=== PATIENT | female | born 2000 | race Caucasian/White ===

== ENCOUNTER → 2021-07-14 08:24 | Outpatient (REF) | payer OTHER, SELFPAY ==
--- NOTE | 2021-07-14 08:31 | CA_ITS ---
Transthoracic Echocardiogram Patient (Last, First, Middle): Kristan Leavitt Marie Gender: Female Date of : 2000 Age: 20 Procedure Date: 07/14/2021 Procedure Type: Transthoracic Echocardiogram Location: OP Height: 165.1 cm Weight: 52.16 kg BSA: 1.56 m2 Heart Rate: bpm BP: 120 / 80 mmHg Pilot Supervisor: REMBERTO Referring MD: Radha Miller NP Grades 9 Thru 12 Visiting Teacher: Elder Medina MD Symptoms: R01.1 CARDIAC MURMUR Study Quality: Good ECG Rhythm: Sinus Conclusions: - 1. Normal LV systolic and diastolic function. 2. Bowing of mitral leaflets with mild thickening suggestive of myxomatous changes with mild MR 3. Normal RVSP 4. No pericardial effusion Findings Left Ventricle Normal left ventricular size, thickness, and systolic function. The visually estimated ejection fraction is between 60-65%. Diastolic function is normal for age. Measured global longitudinal endocardial strain is -21.3 %, which is normal Right Ventricle Normal right ventricular cavity size and systolic function. Atria Both atria are normal in size. The atrial septum has a dumbell appearance. There is no evidence of interatrial shunt. Aortic Valve Normal aortic valve structure and function. There is no aortic valve stenosis. There is no aortic valve regurgitation. Mitral Valve The mitral valve appears myxomatous. There is mild anterior and posterior mitral leaflet thickening. There is bowing of the anterior mitral leaflet without obvious prolapse and bowing of the posterior mitral leaflet without obvious prolapse. There is mild mitral valve regurgitation. There is no mitral valve stenosis. Pulmonic Valve The pulmonic valve was not well visualized. Tricuspid Valve Likely normal tricuspid valve structure and function. There is trace tricuspid valve regurgitation. The right ventricular systolic pressure is normal. The right ventricular systolic pressure is 15 mmHg. Normal right atrial pressure. There is no evidence of pulmonary hypertension. Great Vessels All visible segments of the aorta are normal in size. The pulmonary artery was not well visualized. Venous The inferior vena cava is normal in size and collapses greater than 50% with inspiration. Pericardium/Pleural There is no evidence of pericardial effusion. Prior Study Comparison No prior study available for comparison. Measurements 2D Linear Measurements IVSd: 0.74 0.6-0.9/0.6-1.0 cm LVIDd: 4.15 3.9-5.3/4.2-5.9 cm LVIDd Index: 2.66 2.4-3.2/2.2-3.1 cm/m2 LVIDs: 2.73 2.0-3.6 cm LVPWd: 0.86 0.7-1.1 cm LA Diam: 2.80 2.7-3.8/3.0-4.0 cm LAIDs Index: 1.79 1.5-2.3 cm/m2 LV Mass: 123.18 67-162/88-224 g LV Mass Index: 78.96 43-95/49-115 g/m2 LVOT Diam: 1.90 3.0+(-)1.3 cm 2D Systolic Function EF 4C: 59.00 >55% EF 2C: 62.90 >55% EF BiP: 62.30 >55% Mitral Valve MV Pk E: 0.96 MV PK A: 0.39 MV Decel Time: 180.00 E/A: 2.40 E'Lateral: 15.60 E'Medial: 11.70 E/E' Med: 8.20 E/E' Lat: 6.10 PHT: 53.00 MVA PHT: 4.15 Decel Hand: 5.32 Aortic Valve AoV Pk Edi: 1.19 AoV Pk Grad: 6.00 LVOT LVOT Pk Edi: 1.16 LVOT Mn Edi: 0.81 LVOT VTI: 0.25 LVOT Pk Grad: 5.00 LVOT Mn Grad: 3.00 LVOT Diam: 1.90 LVOT Area: 2.84 Diastolic Function MV Pk E: 0.96 MV Pk A: 0.39 E/A: 2.40 E'Medial: 11.70 E/E' Med: 8.20 E' Laterial: 15.60 E/E' Lat: 6.10 Right Ventricle TAPSE (mm): 2.36 TVS' Edi: 13.30 Tricuspid Valve TR Pk Edi: 1.71 TR Pk Grad: 12.00 RA Press: 3.00 RVSP: 15.00 Great Vessels Aorta Sinus of Valsalva: 2.55 2.0-3.5 cm Ao Asc: 2.50 2.1-3.4 cm Updated in Other Vendor System with Status of Final Elder Medina MD electronically signed on 07/14/2021 9:40:27 PM with status of Final
== END ==
LOC: HO.CARD 08:24
PROVIDERS: PCP Registered Nurse; Visit Provider Registered Nurse
DX: R01.1 Cardiac murmur, unspecified (principal)
CPT/HCPCS: 93306; 93356

== ENCOUNTER → 2021-09-07 09:28 | Outpatient (BNVA) | payer OTHER, SELFPAY | PROVIDERS: PCP Registered Nurse; Visit Provider Internal Medicine Cardiovascular Disease | DX: I34.1 Nonrheumatic mitral (valve) prolapse (principal); I49.3 Ventricular premature depolarization | CPT/HCPCS: 93005 ==

== ENCOUNTER 2022-01-18 13:01 | Outpatient (REF) | payer OTHER, SELFPAY ==
--- NOTE | ~2022-01-18 | US_ITS ---
EXAMINATION: US DIAGNOSTIC ULTRASOUND BREAST, LEFT CLINICAL INFORMATION: Left breast palpable mass upper outer quadrant. COMPARISON: None. TECHNIQUE: Ultrasound of the breast is performed with real-time barron scale imaging and color Doppler. FINDINGS: In the region of palpable lesion at the 1 o'clock position in the left breast 5 cm from the nipple, there is noted to be a hypoechoic well-circumscribed lesion with increased through sound transmission. There is some internal vascularity present. It measures 1.4 x 1.2 x 1.6 cm in size and likely represents a fibroadenoma. Ultrasound-guided core biopsy of the left breast is recommended. A second option would be 6 month follow up ultrasound evaluation of the left breast. Results are discussed with the patient at time of visit. US/US breast LT limited IMPRESSION: Palpable abnormality of the left breast corresponds to a well-circumscribed hypoechoic lesion with increased through sound transmission and vascularity likely related to fibroadenoma. Ultrasound-guided core biopsy recommended. ASSESSMENT: BI-RADS 4: Suspicious (subcategory 4A: Low suspicion for malignancy). RECOMMENDATION: Ultrasound-guided core biopsy. Above recommendation will be called to referring provider's office by the [facility] patient coordinator. This patient's information was entered into a reminder system with a target due date for their next mammogram.
== END 2022-01-18 13:02 | disposition home or self-care (01) ==
LOC: HO.MAMMO 13:01
PROVIDERS: PCP Registered Nurse; Visit Provider Nurse Practitioner Family
DX: N63.21 Unspecified lump in the left breast, upper outer quadrant (principal)
CPT/HCPCS: 76642

== ENCOUNTER 2022-01-26 09:42 | Outpatient (REF) | payer OTHER, SELFPAY ==
--- NOTE | ~2022-01-26 | US_ITS ---
EXAMINATION: ULTRASOUND GUIDED CORE BIOPSY BREAST, LEFT CLINICAL INFORMATION: 21-year-old with palpable solid mass 1:00 left breast, probable fibroadenoma. COMPARISON: Targeted ultrasound left breast 01/18/2022. FINDINGS: Proper informed consent is obtained from the patient after discussion of the procedure, potential risks and complications, and alternatives. Patient was given an opportunity for questions. The patient appeared to understand. The patient consented to the procedure and signed the consent form. GUIDANCE: Ultrasound-guided; aseptic technique. LESION: Solid circumscribed mass 1:00 position 5 cm from nipple measuring 1.6 cm, suspect fibroadenoma. Comment: While targeting for the procedure, a smaller similar-appearing solid smooth circumscribed oval nodule not previously described is noted 3:00 position 7 cm from nipple measuring approximately 1.5 x 1.2 x 0.6 x 1.2 cm. This likely represents another fibroadenoma and may be followed with targeted ultrasound in 6 months. APPROACH: Oblique lateral medial. ANESTHESIA: 8 mL carbonated 1% lidocaine. DERMATOTOMY: Single skin elizabeth dermatotomy performed. NEEDLE: 14-gauge Achieve core biopsy device with 13.5-gauge co-axial guide needle. CORES: 4. CLIP: HydroMARK; shape: butterfly. The clip is visible by ultrasound within the nodule post deployment. The patient tolerated the procedure well. No immediate complications. Home instructions reviewed with the patient. Final pathology results are pending. US/US breast ndl core biopsy LT IMPRESSION: -Status post ultrasound-guided core biopsy left breast. -Clip placed: HydroMARK; shape: butterfly. -Pathology pending. An addendum report will be issued. -There is a similar appearing 1.2 cm solid nodule 3:00 position not previously described, likely fibroadenoma, which may be reassessed with targeted ultrasound in 6 months.
[2022-01-26] MEDS: Sodium Bicarbonate 8.4% 50 MEQ/50 ML VIAL SUBCUT (10:50)
[2022-01-26] MEDS: Lidocaine HCl 1 % 20 ML VIAL 9 ML SUBCUT (10:51)
== END 2022-01-26 09:43 | disposition home or self-care (01) ==
LOC: HO.MAMMO 09:42
PROVIDERS: PCP Nurse Practitioner Family; Visit Provider Surgery
DX: N63.25 Unspecified lump in the left breast, overlapping quadrants (principal)
CPT/HCPCS: 19083; 88305

== ENCOUNTER 2024-09-09 11:07 | Outpatient (AMB) | payer OTHER, SELFPAY ==
--- NOTE | 2024-09-09 11:12 | A.OFFVIS_ITS ---
Vital Signs 09/09/24 11:13 Height 5 ft 5 in Weight 114 lb 10.246 oz BMI 19.1 BP 120/70 Blood Pressure Location Lt brachial Position Sitting Pulse 81 Intake Visit Reasons: 3 yrs f/u w/ekg after echo dx: myxomatous ced rakan Intake Note: 3 year follow-up with ekg has echo on October 01 feeling good Allergies No Known Allergies Allergy (Verified 01/25/22 15:59) HPI Comments Details: Kristan comes for 3 year follow-up. She is currently working as an RN in heart failure. She occasionally feels weird in her chest thinks these are PVCs. She says she usually feels them when she is tired or dehydrated. Usually not of the time. These are not life-limiting symptoms. No prolonged palpitation irregular heartbeat. Denies any exertional shortness of breath or chest pain. Does not exercise on a regular basis. She said there is some increased stress in her life related to a work and out personal life although this is not affecting overall any functionality. She is currently not on any cardiac meds. [facility] Medical History Left breast mass Surgical History History of wisdom tooth extraction Family History Father No problems noted. Mother Afib Maternal Grandmother Pancreatic cancer Maternal Aunt Breast cancer Social History Patient Tobacco Use Status: Never used Tobacco Female Reproductive History Menstrual Age of Menarche: 13 Review of Systems Const Denies chills, Denies fatigue, Denies fever(s), Denies frequent falls, Denies weakness, Denies weight gain and Denies weight loss ENT Denies dizziness Card Denies chest pain, Denies leg edema, Denies lightheadedness, Denies palpitations, Denies dyspnea, Denies dyspnea on exertion, Denies orthopnea and Denies other (loss of consciousness) Resp Denies cough, Denies dyspnea and Denies dyspnea on exertion GI Denies hematochezia and Denies change in stool character Musc Denies abnormal gait, Denies muscle weakness, Denies numbness, Denies radiating pain into limb and Denies tingling Neuro Denies Abnormal speech present, Denies abnormal gait, Denies dizziness, Denies frequent falls, Denies numbness, Denies tingling and Denies weakness Endo Denies fatigue and Denies palpitations Physical Exam Vital Signs: Last Vital Signs Pulse 81 09/09/24 11:13 BP 120/70 09/09/24 11:13 BMI result Body Mass Index 19.1 Const General: cooperative, comfortable, no acute distress, alert, awake, Physically active and well groomed Nutritional Appearance: thin Orientation/consciousness: patient oriented x3 Limitations: no limitations HEENT Head: Yes normocephalic and Yes atraumatic Neck Neck: Yes trachea midline, Yes supple and Yes no JVD Chest Chest palpation & inspection: normal inspection of the chest Resp Effort & Inspection: normal respiratory effort Auscultation: clear to auscultation bilaterally Cardio Jugular venous distension: no JVD Palpation: normal PMI Rate: regular rate Rhythm: abnormal rhythm with ectopic beats Heart sounds: S1 normal heart sound present, S2 normal heart sound present, Clicking heart sound present (Mid systolic click), no gallops, no murmurs and no rubs Peripheral pulses: Peripheral pulses 2+ throughout GI Auscultation: normal bowel sounds Skin General skin exam: no rashes or lesions noted Neuro General: patient oriented x3 and no focal motor deficits Speech: No Abnormal speech present Extrem General: Yes no clubbing, cyanosis or edema Psych Appearance: grossly normal Office Procedures EKG Details: EKG shows normal sinus rhythm normal EKG at 81 beats per minute [id number], Complete Assessment & Plan Assessment & Plan (1) Myxomatous mitral valve: Code(s): I34.1 - Nonrheumatic mitral (valve) prolapse Category: Medical Plan: 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 She has no significant clinical murmur at this point time suggest worsening mitral regurgitation. I will continue to monitor echocardiogram with years. Symptoms associated with sudden mitral regurgitation was discussed with her. She understands agrees. No additional therapy is needed at this point time. (2) PVCs (premature ventricular contractions): Code(s): I49.3 - Ventricular premature depolarization Category: Medical Plan: Intermittent episodes of symptoms suggestive of PVCs. She has no clear significant life-limiting symptoms at this point time. Advised to avoid triggers. Stress mitigation strategies. I would avoid pharmacotherapy at this point time unless she has significant symptoms related to it. Will follow up in the clinic in 3 years' time, sooner p.r.n.. Thank you for allowing me to partake in his care Coding Level of Care Code Est Pt Level 4 (83180) Complex EM visit Add On G2211 Diagnoses Myxomatous mitral valve I34.1 PVCs (premature ventricular contractions) I49.3 CPT Codes EKG - CPT: 27273-[id number], Complete ([id number])
[2024-09-09 11:13] VITALS: BP 120/70; PULSE 81; BMI 19.1
== END 2024-09-09 11:30 | disposition home or self-care (01) ==
PROVIDERS: PCP Internal Medicine; Visit Provider Internal Medicine Cardiovascular Disease
DX: I34.1 Nonrheumatic mitral (valve) prolapse (principal); I49.3 Ventricular premature depolarization
CPT/HCPCS: 93010; 99214

== ENCOUNTER → 2024-09-09 11:07 | Outpatient (BNVA) | payer OTHER, SELFPAY | PROVIDERS: PCP Internal Medicine; Visit Provider Internal Medicine Cardiovascular Disease | DX: I34.1 Nonrheumatic mitral (valve) prolapse (principal); I49.3 Ventricular premature depolarization | CPT/HCPCS: 93005 ==

== ENCOUNTER → 2024-10-01 14:51 | Outpatient (REF) | payer OTHER, SELFPAY ==
--- NOTE | 2024-10-01 14:59 | CA_ITS ---
Transthoracic Echocardiogram Patient (Last, First, Middle): Kristan Leavitt Marie Gender: Female Date of : 2000 Age: 23 Procedure Date: 10/01/2024 Procedure Type: Transthoracic Echocardiogram Location: OP Height: 165.1 cm Weight: 51.71 kg BSA: 1.56 m2 Heart Rate: 64 bpm BP: 120 / 70 mmHg Food Counter Worker: SB Referring MD: Elder Medina MD Neurobiologist: Elder Medina MD Symptoms: I34.1 - Nonrheumatic mitral (valve) prolapse Study Quality: Adequate ECG Rhythm: Sinus Conclusions: - Essentially normal study with myxomatous mitral valve changes noted without significant prolapse Findings Left Ventricle Normal left ventricular size, thickness, and systolic function. The visually estimated ejection fraction is between 60-65%. Spectral Doppler is indicative of a normal filling pattern. Right Ventricle Normal right ventricular cavity size and systolic function. Atria Both atria are normal in size. There is no evidence of interatrial shunt. Aortic Valve Normal aortic valve structure and function. There is no aortic valve stenosis. There is no aortic valve regurgitation. Mitral Valve The mitral valve appears myxomatous. There is mild anterior mitral leaflet thickening. There is mild anterior mitral leaflet prolapse and bowing of the posterior mitral leaflet without obvious prolapse. There is trace mitral valve regurgitation. There is no mitral valve stenosis. Pulmonic Valve The pulmonic valve is likely normal. Tricuspid Valve Likely normal tricuspid valve structure and function. There is trace tricuspid valve regurgitation. The right ventricular systolic pressure is normal. The right ventricular systolic pressure is 19 mmHg. Normal right atrial pressure. There is no evidence of pulmonary hypertension. Great Vessels All visible segments of the aorta are normal in size. The pulmonary artery was not well visualized. Venous The inferior vena cava is normal in size and collapses greater than 50% with inspiration. Pericardium/Pleural There is no evidence of pericardial effusion. Prior Study Comparison No significant change compared to prior study dated: 07/14/2021. Measurements 2D Linear Measurements IVSd: 0.70 0.6-0.9/0.6-1.0 cm LVIDd: 3.94 3.9-5.3/4.2-5.9 cm LVIDd Index: 2.53 2.4-3.2/2.2-3.1 cm/m2 LVIDs: 2.82 2.0-3.6 cm LVPWd: 0.88 0.7-1.1 cm LA Diam: 3.10 2.7-3.8/3.0-4.0 cm LAIDs Index: 1.99 1.5-2.3 cm/m2 LV Mass: 111.22 67-162/88-224 g LV Mass Index: 71.29 43-95/49-115 g/m2 LVOT Diam: 2.10 3.0+(-)1.3 cm 2D Systolic Function EF 4C: 50.10 >55% EF 2C: 67.50 >55% EF BiP: 59.80 >55% Mitral Valve MV Pk E: 1.25 MV PK A: 0.49 MV Decel Time: 205.00 E/A: 2.60 E'Lateral: 13.60 E'Medial: 9.46 E/E' Med: 13.20 E/E' Lat: 9.20 PHT: 60.00 MVA PHT: 3.67 Decel Pickett: 6.13 Aortic Valve AoV Pk Edi: 1.11 AoV Pk Grad: 5.00 GEOVANI: 3.58 LVOT LVOT Pk Edi: 1.12 LVOT Mn Edi: 0.80 LVOT VTI: 0.26 LVOT Pk Grad: 5.00 LVOT Mn Grad: 3.00 LVOT Diam: 2.10 LVOT Area: 3.46 Diastolic Function MV Pk E: 1.25 MV Pk A: 0.49 E/A: 2.60 E'Medial: 9.46 E/E' Med: 13.20 E' Laterial: 13.60 E/E' Lat: 9.20 Right Ventricle TAPSE (mm): 25.20 TVS' Edi: 13.70 Tricuspid Valve TR Pk Edi: 2.00 TR Pk Grad: 16.00 RA Press: 3.00 RVSP: 19.00 Great Vessels Aorta Sinus of Valsalva: 2.40 2.0-3.5 cm Ao Asc: 2.30 2.1-3.4 cm Ao Arch: 2.00 Ao Desc: 1.10 Pulmonary Veins Pulm Vein S/D 1.10 Pulmonary Valve PV Pk Edi: 0.93 Peak PV Grad: 3.00 Updated in Other Vendor System with Status of Final Elder Medina MD electronically signed on 10/01/2024 5:10:53 PM with status of Final
== END ==
LOC: HO.CARD 14:51
PROVIDERS: PCP Internal Medicine; Visit Provider Internal Medicine Cardiovascular Disease
DX: I34.1 Nonrheumatic mitral (valve) prolapse (principal); I49.3 Ventricular premature depolarization
CPT/HCPCS: 93306

== ENCOUNTER → 2024-10-01 14:59 | Outpatient (BNV) | payer OTHER, SELFPAY | PROVIDERS: PCP Internal Medicine; Visit Provider Internal Medicine Cardiovascular Disease | DX: I34.1 Nonrheumatic mitral (valve) prolapse (principal) | CPT/HCPCS: 93306 ==